=== PATIENT | male | born 1970 | race Caucasian/White ===

== ENCOUNTER → 2018-02-08 11:44 | Outpatient (CLI) | payer BC, SELFPAY ==
--- NOTE | 2018-02-08 11:53 | XR_ITS ---
XR knee LT 3V HISTORY: ITS.REASON: acute pain in left knee ORDERING PHYSICIAN: Lakesha Castanon MD PATIENT AGE: 47 years COMPARISON: . FINDINGS: No fracture or dislocation. No lytic or blastic change. Normal mineralization. No significant arthritic changes evident. No other significant findings IMPRESSION: Negative Knee
== END ==
PROVIDERS: PCP Family Medicine; Visit Provider Family Medicine
DX: M25.562 Pain in left knee (principal)
CPT/HCPCS: 73562

== ENCOUNTER 2018-02-27 16:30 | Outpatient (RCR) | payer BC, SELFPAY ==
--- NOTE | 2018-02-19 17:21 | HMH.PTOPEV ---
PT Outpatient Evaluation Rehab PT Outpatient Evaluation Start: 02/19/18 17:08 Freq: Status: Active Protocol: Document 02/19/18 17:08 DARIN (Rec: 02/19/18 17:21 DARIN [id number]) Electronically Signed By Chris Moses, PT 02/19/18 17:08 Outpatient Therapy Subjective History Subjective History Patient is a 47 year old male presenting to outpatient PT with reports LLE anterior thigh and calf pain starting 02/05/18 of insidous onset. Pt reports pain as fluctuating from mild to severe (mild today). X-rays of knee negative. Assessment indicates relief with lumbar extension. Strength asymmetry noted with S1 myotome. Pt reports hx of intermittent mild to moderate low back pain . Main complaint is pain with sitting with worsens upon standing. No comorbidities to report. Chief Complaint Pain Symptom Type Ache Sharp Symptoms Relieved By Nothing Symptoms Aggravated By Sitting Walking Prior Functional Limitations None Current Functional Limitations Housework Standing Sitting Squatting Recreation Activity Walking Symptom Description Constant but Variable Level of pain today (0-10) 2 Pain scale - at its best (0-10) 0 Pain scale - at its worst (0-10) 8 Lumbopelvic Eval Posture Thoracic Spine Posture Standing Position Neutral Lumbar Spine Posture Standing Position Neutral Assistive device Assistive Devices None / NA Gait Observation General Gait Pattern Observation Decrease Weight Bear (L) Range of Motion Lumbar Spine Active Flexion Range of 65 Motion (degrees) Lumbar Spine Active Extension Range of 20 Motion (degrees) Left Lumbar Spine Lateral Flexion Active 22 Range of Motion (degrees) Right Lumbar Spine Lateral Flexion 27 Active Range of Motion (degrees) Lumbar Spine ROM Limitations Soft Tissue Tightness Bony Restriction Manual Muscle Test Left Knee Extension Strength Grade 5 Normal Knee Flexion Strength Grade 5 Normal Hip Flexion Strength Grade 5 Normal Extensor
== END 2018-02-27 16:31 | disposition home or self-care (01) ==
LOC: PT 16:30
PROVIDERS: PCP Family Medicine; Visit Provider Family Medicine
DX: M79.605 Pain in left leg (principal)
CPT/HCPCS: 97012; 97110; 97163

== ENCOUNTER 2023-11-15 07:18 | Outpatient (CLI) | payer OTHER, SELFPAY ==
[2023-11-15 09:35] LABS: Alanine Aminotransferase 15 U/L (12-78); Albumin Level 4.1 g/dl (3.5-5.0); Albumin/Globulin Ratio 1.4 (1.1-1.8); Alkaline Phosphatase 77 U/L (38-126); Anion Gap 10.1 mEq/L (5-15); Aspartate Amino Transferase 23 U/L (17-59); Bilirubin,Total 0.6 mg/dl (0.2-1.3); Blood Urea Nitrogen 14 mg/dl (9-20); Calcium 9.4 mg/dl (8.4-10.2); Carbon Dioxide 27 mmol/L (22.0-30.0); Chloride 107 mmol/L (98-107); Chol/HDL Ratio 4.5 (1-3.5); Cholesterol 192 mg/dl (140-200); Estimated Glomerular Filt Rate 89 ml/min (>60); GFR (African American) 108 ML/MIN (>60); Globulin 2.9 g/dL (1.3-3.2); Glucose 103 mg/dl (74-100); HDL Cholesterol 43 mg/dl (40-60); Potassium 4.1 mmoL/L (3.5-5.1); Sodium 140 mmol/L (136-145); Triglycerides 49 mg/dl (30-150); VLDL Cholesterol 10 mg/dL (0-40)
[2023-11-15 10:05] LABS: Prostate Specific Ag Screen 1.7 ng/ml (0.0-4.0)
== END 2023-11-15 23:59 | disposition home or self-care (01) ==
LOC: LAB 07:20
PROVIDERS: PCP Family Medicine; Visit Provider Family Medicine
DX: Z12.5 Encounter for screening for malignant neoplasm of prostate (principal); Z13.220 Encounter for screening for lipoid disorders
CPT/HCPCS: 36415; 80053; 80061; G0103

== ENCOUNTER 2024-08-11 10:44 | Outpatient (CLI) | payer OTHER, SELFPAY ==
--- NOTE | 2024-08-11 10:49 | FL_ITS ---
FINAL REPORT CLINICAL HISTORY: PHARYNGEAL DYSPHAGIA DAP 298.34 FT 2.24 FINDINGS: MODIFIED BARIUM SWALLOW History: Dysphagia FINDINGS: Fluoroscopy was provided for the speech pathologist to evaluate the swallowing mechanism. The patient was given several different consistencies of barium while the swallow was visualized fluoroscopically. The report of the speech pathologist should be consulted prior to making dietary decisions. Fluoroscopy time: 2 minutes 24 seconds Fluoro dose: 298.334 DAP in uGym[employer] IMPRESSION: Modified barium swallow under fluoroscopic guidance. Please see the report of the speech pathologist for Dietary recommendations. Films reviewed , interpreted and dictated by Dr. Shrestha. Transcribed by Martinez Olson PA-C. Reviewed, Interpreted and Dictated by Lakesha Shrestha MD Transcribed by RHONDA Boykin Authenticated and [facility]
--- NOTE | 2024-08-11 11:44 | HMH.SLMBS2 ---
Speech & Language Evaluation Speech/Lang Modified Barium Swallow Start: 08/11/24 11:35 Freq: once Status: Complete Protocol: Document 08/11/24 11:35 [facility] (Rec: 08/11/24 11:44 [facility] laptop) JUNIOR PROJECT MANAGER Evaluation Information JUNIOR PROJECT MANAGER Evaluation Information Date of Evaluation: 08/11/24 Time of Evaluation: 11:00 Evaluation Type Initial Certification Reason for Referral pharyngeal dysphagia per MD order Does Patient Qualify for Service No Qualify/Failure Comment Based on clinical observations made throughout instrumental assessment (MBSS), further skilled speech therapy services are not warranted d/t adequate mastication and manipulation of bolus and safe and efficient oropharyngeal swallow function. Pt would benefit from GI consult d/t globus sensation. MBS Recommendations Plan Pt/Guardian verbally ack understanding Yes of dx/prognosis/goals Diet Dietary Recommendations Regular,Thin Liquids SL Swallow Guidelines Standard Aspiration Prec.,Eat at slow rate,Reflux precautions Treatment/Strategies Strategy/Precaution Recommended Sitting Upright (90 deg),Small Bites and Sips,Alternate Liquids/Solids Referral/Other Recommended Referrals GI Consult Comment GI consult recommended d/t globus sensation on fibrous meats and carbonated beverages . JUNIOR PROJECT MANAGER Patient History Section JUNIOR PROJECT MANAGER Patient History Primary Medical History Pt reports no significant PMHx . Pt states complaints of globus sensation when drinking carbonated beverages and fibrous meats. Does Patient have Reflux or GERD? No Does Patient Experience Coughing or No Choking Episodes? Does Patient Avoid Certain Food Textures Yes /Consistencies? Food Textures/Consistencies Comment Fibrous meats and carbonated beverages Does Patient Utilize Compensatory No Strategies During Meals? Has Patient Experienced Significant No Weight Loss? Does Pt have Hx of Recurrent Pneumonias No or Respiratory Infections? Has Patient Noticed Change in Vocal No Quality? Mod Barium Swallow Study Patient Orientation Patient Orientation Person,Place,Time,Situation Oral Expression Ability No Impairment Ability to Follow Directions Excellent Is Patient able to Perform Volitional Yes Throat Clear? Is Patient able to Perform Volitional Yes Cough? Is Patient able to Manage Secretions Yes Independently? Mod Barium Swallow Set Up Radiologist Benson Shoemaker Patient Presentation: Awake,Alert,Appropriate, Follows Commands Bolus Consistencies Trialed: Thin Liquids,Pudding,Puree, Mechanical Soft,Regular,Pill ( Barium Tablet) MBSS Observations Consistency & Strategy Trial Regular Penetration/Aspiration Scale 1 PAS Amount Neither Pharyngeal Residual 0-9% Mechanical Soft Penetration/Aspiration Scale 1 PAS Amount Neither Pharyngeal Residual 0-9% Puree Penetration/Aspiration Scale 1 PAS Amount Neither Pharyngeal Residual 0-9% Pudding Penetration/Aspiration Scale 1 PAS Amount Neither Pharyngeal Residual 0-9% Thin Penetration/Aspiration Scale 1 PAS Amount Neither Pharyngeal Residual 0-9% Mod Barium Swallow Impressions Oral Phase Summary & Impressions Oral Phase: Impression No Impairment (WFL) Oral Phase: Labial Closure No Impairment (WFL) Oral Phase: Bolus Formation Pooling L/R No Impairment (WFL) Oral Phase: Bolus Formation Under Tongue No Impairment (WFL) Oral Phase: Bolus Formation Scattered No Impairment (WFL) Loss Oral Phase: Mastication Rotary Chew No Impairment (WFL) Oral Phase: Mastication Munching No Impairment (WFL) Oral Phase: Mastication Lateralization No Impairment (WFL) Oral Phase: Lingual Movement No Impairment (WFL) Oral Phase: Residue Clearing No Impairment (WFL) Oral Phase: Summary No impairment of oral phase of swallow. Pharyngeal Phase Summary & Impressions Pharyngeal Phase: Impression No Impairment (WFL) Pharyngeal Phase: A/P Lingual Propulsion No Impairment (WFL) Spills Pharyngeal Phase: Swallow Response Delay No Impairment (WFL) Pharyngeal Phase: Base of Tongue No Impairment (WFL) Pharyngeal Phase: Epiglottic Coverage No Impairment (WFL) Pharyngeal Phase: Laryngeal Elevation No Impairment (WFL) Pharyngeal Phase: Vallecular Retention No Impairment (WFL) Clearing Pharyngeal Phase: Pharyngeal Wall No Impairment (WFL) Residue Clearing Pharyngeal Phase: Piriform Sinus No Impairment (WFL) Retention Pharyngeal Phase: Summary No impairment of pharyngeal phase of swallow. No aspiration or penetration observed on any consistency throughout evaluation. Aspiration Aspiration? No Silent Aspiration? No JUNIOR PROJECT MANAGER MBSS Goals Education Instructions provided JUNIOR PROJECT MANAGER discussed clinical observations made throughout instrumental assessment, diet recommendations, compensatory strategies, and benefit of GI referral with pt who expressed understanding. Patient/Caregiver Able to Recall Able to recall/restate Information Reinforcement needed No PHYSICIAN CERTIFICATION: I certify the specified therapy services for Steven Valverde are required, authorized, and reviewed every 30 days.
== END 2024-08-11 23:59 | disposition home or self-care (01) ==
LOC: RAD 10:44
PROVIDERS: PCP Family Medicine; Visit Provider Family Medicine
DX: R13.13 Dysphagia, pharyngeal phase (principal)
CPT/HCPCS: 74230; 92611

== ENCOUNTER 2024-09-14 10:43 | Day surgery (SDC) | payer OTHER, SELFPAY ==
[2024-09-11 15:20] VITALS: BMI 31.9
[2024-09-14 11:36] VITALS: BP 121/72; PULSE 65; RESP 18; TEMP 36.2; O2SAT 95
[2024-09-14] MEDS: LACTATED RINGERS 1000ML 1,000 ML 50 ML IV (11:42)
--- NOTE | 2024-09-14 12:21 | EXP.ANES.CKL ---
[facility] Disclaimer: The information contained in this section may have been updated after the patient was seen, as this information can be updated by other users. Medical History Dysphagia Globus sensation Surgical History No significant past surgical history Family History Father Family history of myocardial infarction Mother Family history of diabetes mellitus type II Other Family history of cancer Social History Smoking Status: Never smoker alcohol intake: never substance use type: denies use current occupational status: employed Travel in the last 8 weeks?: Inside the [place] caffeine: Yes [facility] Anesthesia Checklist Patient Identification Patient Identification: Arm Band Structural Data Admitted From: Home Planned Operative Procedure/s: EGD Consent for Planned Operative Procedure(s) Verified: Yes Verified Documents: Surgical Consent and History and Physical Additional verifications Anesthesia Reactions: No Airway Assessment Mallampati Score:: Class II C-Spine Mobility Assessed: Yes TMJ Mobility Assessed: Yes Dentition: Good Dentition Neurological Assessment Level of Consciousness: Awake, Alert and Appropriate Anesthesia Plan Anesthesia Risk discussed: Yes Anesthesia Plan: Verified ASA Class: II Anesthesia Type: MAC
--- NOTE | 2024-09-14 12:29 | EXP.HP ---
History of Present Illness *Admission Date: 09/14/24 *Reason for visit:: Dysphagia *History of present illness: Mr. Valverde is a 54-year-old gentleman who is here for diagnostic/therapeutic upper endoscopy secondary to dysphagia. The examination is deemed medically necessary for endoscopy. The patient has been seen, interviewed and examined prior to the procedure by both myself and the anesthesia provider. [facility] Disclaimer: The information contained in this section may have been updated after the patient was seen, as this information can be updated by other users. Medical History (Updated 09/14/24 @ 12:42 by Lee Llamas II, MD) Dysphagia Globus sensation Surgical History No significant past surgical history Family History Father Family history of myocardial infarction Mother Family history of diabetes mellitus type II Other Family history of cancer Social History (Updated 09/14/24 @ 12:21 by Lukasz Gilliland CRNA) Smoking Status: Never smoker alcohol intake: never substance use type: denies use current occupational status: employed Travel in the last 8 weeks?: Inside the [place] caffeine: Yes Have you lived/traveled outside [place] in past 30 days?: No Contact w/someone who lives/traveled outside US past 30 days?: No Exposure to someone with infectious disease in past 14 days?: No Do you have a fever (greater than 100.4 F or 38 C)?: No Have you tested positive for COVID-19?: No Exposed to someone with COVID-19 in past 14 days?: No Do you have a sore throat?: No Do you have a cough?: No Do you have any weakness?: No Are you experiencing any nausea/vomitting?: No Do you have any diarrhea?: No Are you experiencing any unusual bleeding?: No Do you have any muscle aches/pain?: No Do you have any abdominal pain?: No Are you experiencing loss of taste or smell?: No Other Medical History Have you received the Flu Vaccine for this season: No Have you received the Pneumonia Vaccine: No Review of Systems Review of Systems Review of systems (narrative): Negative *Cardiovascular Comments: Negative *Gastrointestinal Comments: Negative *Genitourinary Comments: Negative *Musculoskeletal Comments: Negative *Neurologic Comments: Negative Meds Home Medications and Allergies Home Medications ?Medication ?Instructions ?Recorded ?Confirmed ?Type No Known Home Medications 09/11/24 09/14/24 History New Prescriptions to Start Prescriptions: Allergies Allergy/AdvReac Type Severity Reaction Status Date / Time No Known Allergies Allergy Verified 09/11/24 14:49 Exam Data for Last 24 hours Vital signs and Labs for Last 24 Hours: Temp Pulse Resp BP Pulse Ox O2 Del Method 97.1 F L 65 18 121/72 95 Room Air 09/14/24 11:36 09/14/24 11:36 09/14/24 11:36 09/14/24 11:36 09/14/24 11:36 09/14/24 11:36 I & O for Last 24 hours: Intake & Output 09/11/24 09/12/24 09/13/24 09/14/24 23:59 23:59 23:59 23:59 Weight 242 lb *Routine HEENT Exam Head: Present normocephalic Eye: Present EOMI and PERRL ENT: Present mucous membranes moist *Routine Neck Exam Neck: Present supple *Routine Respiratory Exam Respiratory: Present CTA bilaterally *Routine Cardiovascular Exam Cardiovascular: Present RRR *Routine Abdominal Exam Abdominal: Present soft and normoactive bowel sounds; Absent tenderness *Routine Rectal Exam Rectal:: deferred *Routine Genitalia Exam Genitalia:: deferred *Routine Extremities Exam Extremities: Absent cyanosis, clubbing or edema *Routine Skin Exam Skin: Present warm; Absent rash *Routine Neurological Exam Neurological: Present alert and oriented X3 Assessment and Plan *Assessment and plan (1) Dysphagia: Status: Acute Category: Medical Code(s): R13.10 - Dysphagia, unspecified Plan A/P: 1. Dysphagia is the preprocedural diagnosis. The patient will be anesthetized/sedated using MAC sedation. The patient has been seen and examined. Cardiac and lung assessment prior to the examination is stable. Proceed with planned diagnostic/therapeutic upper endoscopy.
[2024-09-14 12:33] VITALS: O2SAT 99
--- NOTE | 2024-09-14 12:42 | HMH.PROCNOTE ---
[facility] Procedure Note Date: 09/14/24 Time: 12:51 Procedure Note:: Upper Endoscopy Procedure Report: Esophagogastroduodenoscopy with cold biopsies and TTS balloon dilation Endoscopost: Lee Llamas II, MD Referring Physician: Sajan Broussard MD Date of Procedure: September 14, 2024 Equipment: Olympus GIF 190 standard upper endoscope Sedation: MAC sedation Indications: Mr. Valverde is a 54-year-old gentleman who has had dysphagia for the last year. This began originally with steaks and meats. This can especially occur if he drinks a carbonated beverage with solids such as meats. He reports no heartburn, reflux, bloating, belching or abdominal pain. This is his first upper endoscopy. Procedure: Prior to the procedure, a history and physical exam was performed, and patient's medications and allergies were reviewed. The risks, benefits and alternatives of the sedation and procedure were discussed with the patient. All questions were answered and informed consent was obtained. The patient was brought to the procedure room. Patient identification and proposed procedure were verified by the physician and the nurse. The patient was placed in a left lateral decubitus position and the scope was passed under direct vision. Throughout the procedure, the patient's blood pressure, pulse, and oxygen saturations were monitored continuously. The upper GI endoscopy was accomplished without difficulty. The patient tolerated the procedure well. Findings: The scope was passed directly into the upper esophagus and advanced to the third portion of the duodenum. There were scattered erosions in the 2nd and 1st portion of duodenum with a couple of superficial ulcerations. Biopsies were taken from the duodenum adjacent to the largest superficial ulcer. The scope was withdrawn through a normal duodenal bulb and pylorus into the stomach. There was very mild linear gastropathy of the antrum. The body and fundus of the stomach were normal. Upon retroflexion there was no hiatal hernia. Cold biopsies were taken along the lesser curvature to rule out H. pylori. The scope was then withdrawn into the esophagus. There was a distal esophageal fibrotic ring that was originally 8 to 9 mm. There was also some corrugation and furrowing. Biopsies were taken from the distal and proximal esophagus to rule out eosinophilic esophagitis. The entire esophagus was dilated to 60 Icelandic/20 mm with a TTS hydrostatic balloon with shattering of the distal fibrous ring. There is no evidence of reflux esophagitis or Posada's. The remainder of the esophageal mucosa was normal. Impression: 1. 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 Mild esophageal corrugation and furrowing?rule out eosinophilic esophagitis 3. Duodenal erosions/superficial ulceration Plan: I will follow-up the biopsies to rule out eosinophilic esophagitis. I am going to place the patient on omeprazole 40 mg daily for at least 3 months. I will also send [facility] food allergy testing. The patient should have clinical improvement with dilation.
[2024-09-14 12:52] VITALS: BP 136/93; PULSE 85; RESP 18; TEMP 36.7; O2SAT 95
[2024-09-14 13:02] VITALS: BP 129/77; PULSE 70; RESP 18; TEMP 36.2; O2SAT 95
[2024-09-14 13:12] VITALS: BP 124/69; PULSE 65; RESP 17; TEMP 36.1; O2SAT 95
[2024-09-14 13:22] VITALS: BP 126/74; PULSE 65; RESP 17; TEMP 36.1; O2SAT 95
[2024-09-16 19:37] LABS: F001-IgE Egg White <0.10 kU/L (Class 0); F002-IgE Milk <0.10 kU/L (Class 0); F003-IgE Codfish <0.10 kU/L (Class 0); F004-IgE Wheat 0.54 kU/L (Class I); F010-IgE Sesame Seed <0.10 kU/L (Class 0); F013-IgE Peanut <0.10 kU/L (Class 0); F014-IgE Soybean <0.10 kU/L (Class 0); F024-IgE Shrimp <0.10 kU/L (Class 0); F256-IgE Walnut <0.10 kU/L (Class 0); F338-IgE Scallop <0.10 kU/L (Class 0)
== END 2024-09-14 14:00 | disposition home or self-care (01) ==
PROVIDERS: PCP Family Medicine; Visit Provider Internal Medicine Gastroenterology
PROC: 0DJ08ZZ Inspection of Upper Intestinal Tract, Via Natural or Artificial Opening Endoscopic (ICD-10-PCS; CPT 43239; principal; 2024-09-14 12:30)
DX: R13.10 Dysphagia, unspecified (principal); K26.9 Duodenal ulcer, unspecified as acute or chronic, without hemorrhage or perforation; K31.9 Disease of stomach and duodenum, unspecified; K22.2 Esophageal obstruction; R93.3 Abnormal findings on diagnostic imaging of other parts of digestive tract
CPT/HCPCS: 43239; 43249; 36415; 86003; 86008; C1726; J7120